=== PATIENT | female | born 1980 | race Caucasian/White ===

== ENCOUNTER → 2020-03-26 | Outpatient (CLI) | payer OTHER ==
--- NOTE | 2020-03-26 10:06 | RAD ---
EXAM: CT right ankle without contrast. HISTORY: Right ankle pain radiating to the knee. Prior fracture fixation. TECHNIQUE: CT of the right leg, ankle and foot was performed without intravenous contrast. One or more of the following individualized dose reduction techniques were utilized for this examination: 1. Automated exposure control. 2. Adjustment of the mA and/or kV according to patient size. 3. Use of iterative reconstruction technique. COMPARISON: None. FINDINGS: Tibiotalar arthrodesis appears solidly fused. It is fixed by 2 anterior plates fixed by screws. There is no periprosthetic lucency. The talus and distal fibula are not solidly fused and there is associated degenerative change. An old screw tract is noted within the calcaneus. There is mild osteoarthritis along the most medial aspect of the posterior subtalar facet. Otherwise the subtalar joint is unremarkable. The hindfoot and midfoot are otherwise unremarkable. The included proximal aspect of the tibia and fibula are also unremarkable. There is no intrinsic muscle atrophy within the visualized portions of the foot. The medial and lateral tendons at the ankle appear intact and located. The Achilles tendon has normal morphology. The visualized calf musculature is unremarkable. IMPRESSION: 1. Solid tibiotalar arthrodesis. The talofibular articulation is not solidly fused and there is associated degenerative change. 2. 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 Electronically signed by: Jose Campbell MD (03/26/2020 10:03 AM) [id number]
== END | disposition home or self-care (01) ==
LOC: CT 07:38
PROVIDERS: ATTEND Preventive Medicine Occupational Medicine
DX: M19.071 Primary osteoarthritis, right ankle and foot (principal); Z98.1 Arthrodesis status
CPT/HCPCS: 73700